=== PATIENT | male | born 1960 | race Caucasian/White ===

== ENCOUNTER 2020-02-22 20:34 | Emergency (ER) | payer OTHER ==
[~2020-02-22] VITALS: Ht 167.6 cm; Wt 74.8 kg
--- NOTE | 2020-02-22 20:40 | NUR ---
Note richardson in ED - 02/22/20 at 2117 by [email or web address] Placed in room 08 . Placed on personnel monitor, blood pressure machine and pulse oximeter. To gown for exam. Side rails up.
--- NOTE | 2020-02-22 20:40 | NUR ---
Patient to ER bed 2 to gown for evaluation. Side rails up. Report given to TJ THAKKAR.
[2020-02-22 20:46] VITALS: BP_SYST 163
--- NOTE | 2020-02-22 21:17 | NUR ---
ER at bedside examining patient.
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
--- NOTE | 2020-02-22 21:29 | NUR ---
Written and verbal consent obtained from patient for blood alcohol, name and verified by patient. Disinfected patient's skin with that did not contain alcohol or other volatile organic compound. Collected the blood from the subject named by venipuncture, in the presence of Officer SHAHRAM. Used a sterile, dry hypodermic needle and dry vacuum blood collection. Two dry vacuum blood collection was supplied by the officer named above. Withdrew a specimen of blood from RAC of the subject named above. Inverted both blood tubes several times to ensure that the preservative and anticoagulant were thoroughly mixed in the blood specimen. I initialed both blood tube labels for identification. The labeled blood tubes were handed directly to the Officer named above. The blood tubes stopper remained in place while I had possession of the blood tubes. The Officer placed tubes into envelope and sealed it in my presence. Envelope initialed by myself and Officer named above. Patient tolerated well, bandage applied, and bleeding controlled.
--- NOTE | 2020-02-22 21:45 | NUR ---
Patient transported to radiology via WC, accompanied by STAFF.
[2020-02-22] MEDS ORDERED: BACITRACIN 1 GM OINT TP ONE (21:54)
--- NOTE | 2020-02-22 22:30 | NUR ---
PT SLEEPING IN BED
--- NOTE | 2020-02-22 23:43 | NUR ---
Patient given written and verbal discharge instructions and verbalizes understanding. ER MD discussed with patient the results and treatment provided. Patient in stable condition. ID arm band removed. Patient educated on pain management and to follow up with PMD. Pain Scale 0/10. Opportunity for questions provided and answered. Medication side effect fact sheet provided.
[2020-02-22 23:44] VITALS: BP_SYST 147
== END 2020-02-22 23:44 ==
LOC: SED 20:34
DX: S16.1XXA Strain of muscle, fascia and tendon at neck level, initial encounter (principal); S50.812A Abrasion of left forearm, initial encounter; V49.9XXA Car occupant (driver) (passenger) injured in unspecified traffic accident, initial encounter; Y93.89 Activity, other specified; Y92.413 State road as the place of occurrence of the external cause; Y99.8 Other external cause status
CPT/HCPCS: 72125-TC; 99284